=== PATIENT | male | born 1995 | race Caucasian/White ===

== ENCOUNTER 2020-09-18 10:19 | Emergency (ER) | payer OTHER, SELFPAY ==
[2020-09-18 10:41] VITALS: BP 148/75; PULSE 86; RESP 20; TEMP 37.5; O2SAT 98
--- NOTE | 2020-09-18 11:02 | ED.URI ---
HPI - URI/Sore Throat General Chief Complaint: Upper Respiratory Infection Stated Complaint: upper respiratory infection Source: patient and RN notes reviewed Limitations: no limitations History of Present Illness HPI Narrative: The patient, who is a nondrinker/occasional vaper, presents with upper respiratory symptoms. Patient states he is working with a coworker who has been diagnosed with Covid. Now he has at least half week history of scratchy throat, diarrhea x2 associated with nasal congestion. No fever, complete loss of taste/smell, CP, wheezing/sneezing, S OB, rolan vomiting/diarrhea. Symptoms are mild;POC Test for Covid is positive. Patient advised to isolate; to go to hospital if worsens Related Data Allergies Allergy/AdvReac Type Severity Reaction Status Date / Time blackberries Allergy Mild Uncoded 12/21/10 13:15 blueberries Allergy Mild Uncoded 12/21/10 13:15 Review of Systems Review of Systems: Narrative: The patient has been informed that they may have pre-hypertension or Hypertension based on a BP reading in the department. I recommend that the patient call the primary care provider listed on their discharge instructions or a physician of their choice this week to arrange follow up for further evaluation of possible pre-hypertension or Hypertension General/Constitutional: No weight loss,fever Eyes: N0: Redness,discharge Ears/Nose/Throat: No: Epistaxis,ear discharge Respiratory: Denies: Hemoptysis Gastrointestinal: No Vomiting, Bleeding-rectal Skin: No Lumps, eruption Neurologic: No Focal Weakness,Sz Hematologic: Denies: Petechiae/Purpura Psychiatric: No: Suicida ideationl All Other Systems: Reviewed and Negative PMFSH Social History Social History Gender identity (if verbalized by the patient): Male Comments At time of signature, agree with nursing past medical, surgical, social and family history. There is no relevant family history pertinent to the presenting complaint Exam Narrative: Exam Narrative: General Appearance: Obese/ Well nourished, Conjunctiva clear Nose: Rhinorrhea, Mucousal erythema Mouth/Throat: MM moist, Uvula midline, Pharyngeal erythema Neck: Supple, No adenopathy Respiratory: No respiratory distress, airway patent Cardiovascular: RRR, No JVD Musculoskeletal: Non tender, Normal strength Skin: Warm, Dry Neurological: A&O x3, CN II-XII intact Psychiatric: Normal mood, Normal affect Course Vital Signs Vital signs: Vital Signs Temperature 99.5 F 01/09/21 10:41 Pulse Rate 86 09/18/20 10:41 Respiratory Rate 20 09/18/20 10:41 Blood Pressure 148/75 H 09/18/20 10:41 Pulse Oximetry 98 09/18/20 10:41 Temperature 99.5 F 09/18/20 10:41 Pulse Rate 86 09/18/20 10:41 Respiratory Rate 20 09/18/20 10:41 Blood Pressure 148/75 H 09/18/20 10:41 Pulse Oximetry 98 09/18/20 10:41 MDM - URI/Sore Throat Lab Data Labs: Lab Results 09/18/20 Range/Units Unknown POC SARS CoV-2 Ag Positive (Negative) Discharge Plan Discharge Clinical Impression: COVID-19 Patient Disposition: Home, Self-Care Condition: Stable Instructions: COVID-19 (Coronavirus Disease 2019) (ED) Additional Instructions: When at pharmacy also get pulse ox, OTC vitamin D, zinc, full dose daily aspirin Prescriptions: New codeine-guaifenesin 10-100 mg/5 mL liquid 7.5 ml PO Q6H PRN (Reason: cough) Qty: 118 RF: 0 Lidocaine Viscous 2 % solution 5 ml MUCOUS MEM QID PRN (Reason: pain) Qty: 100 RF: 0 Follow-up/Referrals: PHYSICIAN,INVESTMENT PROFESSIONAL [Primary Care Provider] - Stand Alone Forms: Work/School Release IP
== END 2020-09-18 11:12 | disposition home or self-care (01) ==
PROVIDERS: Emergency Provider Emergency Medicine
DX: U07.1 COVID-19 (principal); K21.9 Gastro-esophageal reflux disease without esophagitis
CPT/HCPCS: 87426; 99213; C9803; G0463

== ENCOUNTER 2022-09-15 14:28 | Emergency (ER) | payer BC, SELFPAY ==
[2022-09-15 15:07] VITALS: BP 149/95; PULSE 78; RESP 18; TEMP 36.7; O2SAT 98
--- NOTE | 2022-09-15 15:31 | ED.BACK ---
HPI - Back Pain/Injury General Chief Complaint: Back Pain/Injury Stated Complaint: back pain Time Seen by Provider: 09/15/22 15:31 Source: patient Mode of arrival: ambulatory Limitations: no limitations History of Present Illness HPI Narrative: 27-year-old male presented for complaint of bilateral lower back pain for about 1 week. States onset of injury he twisted it while doing laundry. He endorses the pain is intermittent, worse when bending over or with certain positions. He states it feels better at times but then it feels a he is re-injuring himself. He reports pain radiates down both legs just below the knees. He denies numbness, tingling, weakness or change in gait. has been taking ibuprofen and Aleve for symptoms. Rates 01/17. Related Data Home Medications Medication Instructions Recorded Confirmed omeprazole 40 mg capsule,delayed 40 mg PO DAILY 09/15/22 09/15/22 release Allergies Allergy/AdvReac Type Severity Reaction Status Date / Time blackberries Allergy Mild Hives Uncoded 09/15/22 15:16 blueberries Allergy Mild Hives Uncoded 09/15/22 15:16 Review of Systems Review of Systems: CONSTITUTIONAL: Denies body aches, fever, chills EYES: Denies visual changes CARDIOVASCULAR: Denies chest pain, palpitations, or edema. RESPIRATORY: Denies cough or dyspnea. GASTROINTESTINAL: Denies abdominal pain, nausea, vomiting, or diarrhea. SKIN: Denies rash, itching, or wounds. MUSCULOSKELETAL: reports back pain NEUROLOGIC: Denies headache, numbness, tingling, or weakness. All systems reviewed & are unremarkable except as noted in HPI and below PMFSH Social History Social History Gender identity (if verbalized by the patient): Male Comments At time of signature, I have reviewed and agree with nursing past medical, surgical, social and family history unless otherwise noted. Please see nursing chart for further information. There is no relevant family history pertinent to the presenting complaint Exam Narrative: GENERAL: Well-appearing HEAD: Normocephalic, atraumatic. EYES: conjunctivae clear NECK: Supple. full ROM CHEST: LCTAB HEART: Regular rate and rhythm. Normal and equal peripheral pulses. MUSC: No Vertebral point tenderness or step off. No paraspinal muscle tenderness appreciated. BLEs with normal strength and sensation, normal range of motion. Patient laying on exam table with knees bent at end of table. Able to lift self without assist. No open wounds, or obvious deformity; alignment normal, pulse palpable and equal bilaterally, skin warm, dry, pink. Capillary refill less than 3 seconds. Gait steady. SKIN: Warm, dry, no rash. NEURO: Alert and oriented x3. Course Course Emergency Course: Patient is aware of diagnosis, understands and agrees to treatment plan. Anticipatory guidance given. Patient agrees to follow-up as directed and is aware of reasons to seek care at the emergency department. Portions of this record may have been created with voice recognition software Level of Care: Express Care Visit Vital Signs Vital signs: Vital Signs Temperature 98.1 F 09/15/22 15:07 Pulse Rate 78 09/15/22 15:07 Respiratory Rate 18 09/15/22 15:07 Blood Pressure 149/95 H 09/15/22 15:07 Pulse Oximetry 98 09/15/22 15:07 Oxygen Delivery Room Air 09/15/22 15:07 Temperature 98.1 F 09/15/22 15:07 Pulse Rate 78 09/15/22 15:07 Respiratory Rate 18 09/15/22 15:07 Blood Pressure 149/95 H 09/15/22 15:07 Pulse Oximetry 98 09/15/22 15:07 Oxygen Delivery Room Air 09/15/22 15:07 Reviewed MDM - Back Pain/Injury MDM Narrative Medical decision making narrative: Advised supportive measures and s/s to go to the ER. Pt is stable and appropriate for outpt treatment and follow up with pcp. Differential Diagnosis Differential diagnosis: Likely lumbar radiculopathy, sciatica, strain of lumbar region, renal colic, pyelone
== END 2022-09-15 15:54 | disposition home or self-care (01) ==
PROVIDERS: Emergency Provider Nurse Practitioner Family; PCP Family Medicine
DX: S39.012A Strain of muscle, fascia and tendon of lower back, initial encounter (principal); X50.9XXA Other and unspecified overexertion or strenuous movements or postures, initial encounter
CPT/HCPCS: 99213; G0463

== ENCOUNTER 2022-10-18 08:07 | Emergency (ER) | payer BC, SELFPAY ==
[2022-10-18 08:22] VITALS: BP 133/79; PULSE 92; RESP 18; TEMP 36.6; O2SAT 98
--- NOTE | 2022-10-18 08:26 | ED.EYEPROB ---
HPI - Eye Problem General Chief complaint: Eye Problems Stated complaint: cold symptoms,rt eye irritation Time Seen by Provider: 10/18/22 08:26 Source: patient and RN notes reviewed Mode of arrival: ambulatory Limitations: no limitations History of Present Illness HPI Narrative: 27 y/o male presented for c/o right eye irritation, onset yesterday. Endorses redness, yellow drainage, itching, and feels like 'cotton' is in the eye. Endorses son had pink eye last week. Patient also reports cough and sinus congestion over the past 4 days. Denies sob, n/v/d/f/c. Not taking anything for symptoms. Related Data Home Medications Medication Instructions Recorded Confirmed omeprazole 40 mg capsule,delayed 40 mg PO DAILY 09/15/22 10/18/22 release Allergies Allergy/AdvReac Type Severity Reaction Status Date / Time blackberries Allergy Mild Hives Uncoded 10/18/22 08:21 blueberries Allergy Mild Hives Uncoded 10/18/22 08:21 Review of Systems Review of Systems: CONSTITUTIONAL: Denies malaise, chills, sweats, fever EYES: Reports redness, discharge ENT: Reports rhinorrhea, congestion, Denies otalgia, sore throat CARDIOVASCULAR: Denies chest pain, palpitations, edema RESPIRATORY: Reports cough, post nasal drainage. Denies dyspnea GASTROINTESTINAL: Denies abdominal pain, nausea, vomiting, diarrhea SKIN: Denies rash or itching MUSCULOSKELETAL: Denies myalgia NEUROLOGIC: Denies headache PMFSH Social History Social History Gender identity (if verbalized by the patient): Male Exam Narrative: GENERAL: well-appearing EYES: EOMI, PERRLA, conjunctival injection bilaterally with moderate amount yellow drainage and crust noted bilaterally ENT: Mucous membranes moist. TM pearly bryant with dull light reflex bilaterally; no tragal tenderness. Oropharynx erythematous without lesions or exudate, no drooling, no hoarseness, no trismus, uvula midline. CHEST: Expiratory wheezing bilaterally; No respiratory distress, speaks in full sentences. HEART: Regular rate and rhythm. No murmur heard. SKIN: Warm, dry, no rash. NEURO: Alert and oriented x3. PSYCH: Normal mood and affect Course Course Emergency Course: Patient is aware of diagnosis, understands and agrees to treatment plan. Anticipatory guidance given. Patient agrees to follow-up as directed and is aware of reasons to seek care at the emergency department. Portions of this record may have been created with voice recognition software Level of Care: Express Care Visit Vital Signs Vital signs: Vital Signs Temperature 97.9 F 10/18/22 08:22 Pulse Rate 92 10/18/22 08:22 Respiratory Rate 18 10/18/22 08:22 Blood Pressure 133/79 10/18/22 08:22 Pulse Oximetry 98 10/18/22 08:22 Oxygen Delivery Room Air 10/18/22 08:22 Temperature 97.9 F 10/18/22 08:22 Pulse Rate 92 10/18/22 08:22 Respiratory Rate 18 10/18/22 08:22 Blood Pressure 133/79 10/18/22 08:22 Pulse Oximetry 98 10/18/22 08:22 Oxygen Delivery Room Air 10/18/22 08:22 reviewed MDM - Eye Problem MDM Narrative Medical decision making narrative: Treatment for bacterial conjunctivitis and steroid for bilateral wheezing. Advised supportive measures and signs/symptoms to go to the ER. Pt is appropriate for outpt treatment and f/u. Differential Diagnosis Differential diagnosis: Likely corneal abrasion and conjunctivitis Discharge Plan Discharge Clinical Impression: Bacterial conjunctivitis Upper respiratory infection Qualifiers: URI type: unspecified URI Qualified Code(s): J06.9 - Acute upper respiratory infection, unspecified Patient Disposition: Home, Self-Care Condition: Stable Instructions: Antibiotic Form, Upper Respiratory Infection (ED), Conjunctivitis (ED) Additional Instructions: Avoid touching or rubbing your eye. Use over the counter lubricating eye drops as needed for irritation Use a warm or cool washcloth
== END 2022-10-18 08:47 | disposition home or self-care (01) ==
PROVIDERS: Emergency Provider Nurse Practitioner Family
DX: J06.9 Acute upper respiratory infection, unspecified (principal); H10.9 Unspecified conjunctivitis
CPT/HCPCS: 99213; G0463

== ENCOUNTER 2025-02-27 10:30 | Outpatient (CLI) | payer BC, SELFPAY ==
[2025-02-27 11:45] LABS: Hematocrit 42.7 % (42.0-52.0); Hemoglobin 14.3 g/dL (14.0-18.0); Mean Corpuscular HGB Conc 33.5 g/dl (32-36); Mean Corpuscular Hemoglobin 31.1 pg (26-34); Mean Corpuscular Volume 92.8 fl (80-100); Mean Platelet Volume 9.9 fl (7.4-10.4); Platelet Count Result 162 k/mm3 (150-375); Red Cell Distribution Width 12.6 % (11.5-14.5); White Blood Count 7.7 K/mm3 (4.5-10.0)
[2025-02-27 11:55] LABS: Alanine Aminotransferase 64 U/L (6-50); Albumin Level 4.3 g/dL (3.5-5.1); Alkaline Phosphatase 88 U/L (38-126); Anion Gap 9 mmol/L (4-12); Aspartate Amino Transferase 46 U/L (17-59); Bilirubin,Total 0.4 mg/dL (0.2-1.3); Blood Urea Nitrogen 16 mg/dL (9-20); Calcium 9.5 mg/dL (8.4-10.2); Carbon Dioxide 25 mmol/L (22-30); Chloride 105 mmol/L (98-107); Cholesterol 176 mg/dL (0-200); Estimated Glomerular Filt Rate > 60; Glucose 236 mg/dL (65-110); HDL Direct 36 mg/dL; Potassium 3.8 mmol/L (3.4-5.0); Sodium 139 mmol/L (137-145); Total Protein 7.4 g/dL (6.3-8.2); Triglycerides 485 mg/dL (<150)
[2025-02-27 12:06] LABS: LDL Cholesterol Direct 89 mg/dL
[2025-02-27 12:11] LABS: Free T4 Free Thyroxine 1.32 ng/dL (0.78-2.19)
[2025-02-27 13:17] LABS: Creatinine Urine 116.8 mg/dL
[2025-02-27 13:24] LABS: MALB Creatinine Ratio 18.8 mg/g (0-30)
== END 2025-02-27 10:31 | disposition home or self-care (01) ==
LOC: ANHLAB 10:31
PROVIDERS: PCP Physician Assistant; Visit Provider Physician Assistant
DX: E11.9 Type 2 diabetes mellitus without complications (principal)
CPT/HCPCS: 36415; 80053; 80061; 82043; 84439; 84443; 85027

== ENCOUNTER 2025-08-17 10:56 | Outpatient (CLI) | payer BC, SELFPAY ==
[2025-08-17 11:31] LABS: Alanine Aminotransferase 62 U/L (6-50); Albumin Level 4.6 g/dL (3.5-5.1); Alkaline Phosphatase 67 U/L (38-126); Anion Gap 7 mmol/L (4-12); Aspartate Amino Transferase 35 U/L (17-59); Bilirubin,Total 0.7 mg/dL (0.2-1.3); Blood Urea Nitrogen 11 mg/dL (9-20); Calcium 9.5 mg/dL (8.4-10.2); Carbon Dioxide 27 mmol/L (22-30); Chloride 106 mmol/L (98-107); Cholesterol 193 mg/dL (0-200); Estimated Glomerular Filt Rate > 60; Glucose 96 mg/dL (65-110); HDL Direct 35 mg/dL; Potassium 4.2 mmol/L (3.4-5.0); Sodium 140 mmol/L (137-145); Total Protein 7.8 g/dL (6.3-8.2); Triglycerides 200 mg/dL (<150)
== END 2025-08-17 10:57 | disposition home or self-care (01) ==
LOC: ANHLAB 10:58
PROVIDERS: PCP Physician Assistant; Visit Provider Physician Assistant
DX: E78.1 Pure hyperglyceridemia (principal)
CPT/HCPCS: 36415; 80053; 80061